=== PATIENT | male | born 1965 | race Caucasian/White ===

== ENCOUNTER → 2016-11-05 | Day surgery (SDC) | payer OTHER ==
[~2016-11-05] MED LIST: BACITRACIN IM FOR SOLN 50,000 UNIT VIAL ONE; BUPIVACAINE HCL PF 0.75% 30 ML VIAL ONE; BUPIVACAINE/EPINEPHRINE 0.25% 50 ML VIAL ONE; LIDOCAINE 1.5%/EPINEPHrine 1:200,000 PF SOLN 30 ML AMP ONE; MIDAZOLAM HCL 5 MG/ML VIAL (1 ML) ONE; ONDANSETRON HCL 4 MG/2 ML VIAL IV PUSH ONE; PROPOFOL 200 MG/20 ML AMP IV ONE; SODIUM CHLORIDE 0.9% INJ 10 ML ONE; ceFAZolin INJ 1,000 MG VIAL ONE
--- NOTE | 2016-11-05 12:06 | TN ---
cc: VICKIE WELCH M.D. DATE OF SURGERY 11/05/2016 PREOPERATIVE DIAGNOSES 1. Right shoulder rotator cuff tear. 2. 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 POSTOPERATIVE DIAGNOSES 1. Right shoulder large retracted three tendon rotator cuff tear. 2. Right shoulder AC degenerative arthritis with subclavicular impingement and AC joint arthritis. PROCEDURE PERFORMED 1. Right shoulder open complex rotator cuff repair including acromioplasty and the use of allograft. 2. Right shoulder partial distal clavicle excision. SURGEON MD Yuri ANESTHESIA General via laryngeal mask augmented by local infiltration and interscalene block. ESTIMATED BLOOD LOSS Blood loss was approximately 25 cc. DRAINS There were no drains utilized. IMPLANTS USED The implants consisted of two Arthrex 5.5-mm Bio-Corkscrew anchors and two Arthrex 4.5-mm Bio-PushLocks and a [employer]un[employer] 5 cm x 5 cm Graft Jacket allograft. INDICATIONS FOR PROCEDURE Mr. Nye is a 50-year-old gentleman who has a known full-thickness retracted rotator cuff tear that has failed to have significant improvement with conservative management. His pain as well as his range of motion and strength has progressively worsening and is intolerable. Based upon his underlying pathology and his failure to have improvement, he is being taken the operating room for right shoulder rotator cuff repair. He was aware of the risks, benefits, potential complications and limitations of the procedure and full written informed consent was obtained. DESCRIPTION OF PROCEDURE After the patient was appropriately identified in the holding area, he was given 1 gram of intravenous Ancef and then he was given an interscalene block by Dr. Lara under ultrasound guidance. At this time he was taken into the operating suite where he was placed under general laryngeal mask anesthetic and then once he was placed into the beach-chair position, his right shoulder was prepped with alcohol and Hibiclens and then draped in the normal standard fashion including the use of an impervious stockinette from the hand up to the mid-humerus region. At this time a brief time-out was held confirming the right shoulder was the appropriate surgical site. The team was in agreement and the case was now begun. His right shoulder passive motion was full and then a 6-cm incision was made from the acromioclavicular joint, down past the anterolateral edge of the acromion. The subcutaneous tissue was divided and hemostasis was achieved with electrocautery. I went ahead and subperiosteally dissected the AC joint and found that there were hypertrophic changes with osteophytes both cephalad as well as anteriorly and inferiorly. I went ahead and dissected laterally over the anterolateral edge of the acromion and then medially in order to expose approximately 1 cm of the distal clavicle. Care was taken to preserve the AC joint ligaments and then the deltoid was then split in line with its fibers for approximately 1 cm. As soon as the deep deltoid fascia was opened, a large brown of joint fluid was encountered consistent with a large full thickness tear. There was some hypertrophic bursal changes present and was extensive calcification of the coracoacromial ligament and this was further causing subacromial impingement. The actual cuff was not immediately visualized due to retraction and his large acromion and distal clavicle osteophytes. At this time, I performed a generous acromioplasty and this significantly decompressed the subacromial space. I also resected approximately 1 cm of distal clavicle due to the advanced arthritis between the two surfaces of the acromion and clavicle, but also due to the impinging osteophytes on the undersurface of the AC joint and clavicle. Once this was completed the undersurfaces of the acromion and the clavicle were further smoothed and osteophytes from the cephalad surface were also taken down and smoothed as well. This significantly decompressed the subcutaneous region as well as the subacromial space. At this time the rotator cuff was now thoroughly explored. There was an massive retracted tear of the rotator cuff involving the supraspinatus, upper subscapularis and the entire infraspinatus. I meticulously tried to free up the tear and mobilize it and tried to get an anatomic repair. Unfortunately, the infraspinatus was extremely friable and atrophied which limited my ability to move it forward. The supraspinatus was easier to mobilize and had much less atrophy making it suitable to reduce it near the footprint although slightly medialized. The upper subscapularis was then also mobilzed and i was able to reduce the tear shifted slightly posteriorly, to make up for our infraspinatus that was essentially absent. I was satisfied with the progress made and felt we improved a very bad situation dramatically. This was as complex of a cuff reconstruction as it gets due to the missing tissue. I went ahead and made a groove between the tuberosities with the use of a rongeur down to bleeding bone and then put two 5.5-mm Bio-Corkscrew anchors with four #2 FiberWire sutures each into the more anterior and more posterior aspects of the groove that was created. I went ahead and then threaded eight #2 FiberWire sutures through the leading edge of the cuff, two in the subscapularis, four in the supraspinatus and then another two at the apex of the area where the supraspinatus almost where the infraspinatus began to merge and still survived. I went ahead and allowed these sutures to be under tension for a period of time in order to get some stress relaxation done. A trial tensioning of the repair showed dramatic improvement but there was some humeral head still exposed (not watertight). At this time I went ahead and thoroughly irrigated out the glenohumeral of the joint. There was no evidence of any biceps tendon rupture. There was some mild chondromalacia seen of the humeral head but no full-thickness cartilage loss was seen and the glenoid was in good condition as well. There were some hypoplastic changes of the labrum inferiorly but there was no evidence of any labral tear or SLAP lesion was seen. At this point in time I went ahead and then began to retension the rotator cuff sutures and the sequentially tied them down. I brought the arm up to an approximate 15 degrees of forward elevation and slight internal rotation in order to reapproximate the tear and then sequentially tied the sutures one by one getting good stress relaxation of the tissues. Once I had all four pairs tied down nicely, I went ahead and allowed the arm to rest by his side again and it was able to stretch the repair slightly but it did not inappropriately tension it. The cuff moved well with the humeral head. I was quite satisfied with the overall quality of the repair at this point despite the paucity of posterior tissue and the slight medialization that was required. At this time, I decided that I wanted to augment the repair with graft to seal it off and produce an environment more suitable to healing. I opened a Favery 5 cm x 5 cm allograft (graft jacket). It was moistened with antibiotic irrigation and then I went ahead and sutured it into place with interrupted #2 fiberwire sutures. This fully covered the repair after custom trimming it and the repair was now water tight. The shoulder was then irrigated once again with antibiotic-containing saline and I was satisfied with the decompression both of the infraclavicular region as well as the subacromial space. I closed the periosteal tissue over the AC joint with interrupted #2 FiberWire sutures with the knots burried deep and then continued distally down into the level of the deltoid fascia also with some remaining #2 FiberWire sutures with the knots all buried deep. The deltoid repair was excellent and there was no evidence of any gaping of any portions of the wound and I went ahead and now closed the subcutaneous tissue with 2-0 Vicryl inverted subcutaneous stitches and closed the skin with suri. I went ahead and injected 20 cc of 0.25% Marcaine with epinephrine subcutaneously as well as intraarticularly for further postop pain relief. At this time the shoulder was then dressed with Xeroform, 4x4s, ABDs, foam tape a regular extra-large sling was applied. He was awoken from anesthesia and taken to Recovery in stable condition. Appropriate postoperative instructions have been given. Vickie Welch MD Electronically Signed MD ROVERTO Mueller/PAULY /11:20 AM /11:36 AM BRANDT
== END | disposition home or self-care (01) ==
LOC: ESDC 07:31
PROVIDERS: ATTEND Orthopaedic Surgery Sports Medicine
DX: M75.121 Complete rotator cuff tear or rupture of right shoulder, not specified as traumatic (principal); M19.011 Primary osteoarthritis, right shoulder
CPT/HCPCS: 00400; 00450; 01630; 01991; 15271; 23120; 23420; 64417; C1713; J0690; J2250; J2405; Q4107